=== PATIENT | female | born 1995 | race Caucasian/White ===

== ENCOUNTER 2019-08-04 15:37 | Observation (INO) ==
[2019-08-04 16:43] LABS: Bilirubin,Urine Negative (Negative); Blood,Urine Trace (Negative); Clarity,Urine Clear (Clear); Color,Urine Yellow (Yellow); Glucose,Urine (UA) Normal (Normal); Ketones,Urine Negative (Negative); Leukocyte Esterase,Urine Negative (Negative); Nitrite,Urine Negative (Negative); Protein,Urine Negative (Neg-Trace); Specific Gravity,Urine 1.005 (1.010-1.025); Urobilinogen,Urine Normal (Normal)
[2019-08-04 16:45] LABS: Bacteria,Urine Few per hpf (None-Few); Hyaline Casts,Urine None Seen per lpf (None-Few); RBC,Urine 0-3 per hpf (0-3); Squamous Epithelial Cell,Urine Many per lpf (None-Few)
[2019-08-04 17:51] LABS: Amphetamine Screen,Urine Negative ng/mL (Cutoff=1000); Barbiturate Screen,Urine Negative ng/mL (Cutoff=200); Benzodiazepines Screen,Urine Negative ng/mL (Cutoff=200); Cannabinoid Screen,Urine Negative ng/mL (Cutoff = 50); Cocaine Screen,Urine Negative ng/mL (Cutoff= 300); Opiate Screen,Urine Negative ng/mL (Cutoff=300); Phencyclidine Screen,Urine Negative ng/mL (Cutoff=25)
[2019-08-04 17:58] LABS: Candida DNA Not Detected (Not Detect); Gardnerella DNA Not Detected (Not Detect); Trichomonas DNA Not Detected (Not Detect)
== END 2019-08-04 18:11 | disposition home or self-care (01) ==
LOC: 1NENULAB
PROVIDERS: ADMIT Advanced Practice Midwife; ATTEND Advanced Practice Midwife

== ENCOUNTER → 2019-08-26 14:42 | Observation (INO) ==
[2019-08-26 13:59] LABS: Amphetamine Screen,Urine Negative ng/mL (Cutoff=1000); Barbiturate Screen,Urine Negative ng/mL (Cutoff=200); Benzodiazepines Screen,Urine Negative ng/mL (Cutoff=200); Cannabinoid Screen,Urine Negative ng/mL (Cutoff = 50); Cocaine Screen,Urine Negative ng/mL (Cutoff= 300); Opiate Screen,Urine Negative ng/mL (Cutoff=300); Phencyclidine Screen,Urine Negative ng/mL (Cutoff=25)
[2019-08-26 15:35] LABS: Candida DNA Not Detected (Not Detect); Gardnerella DNA Not Detected (Not Detect); Trichomonas DNA Not Detected (Not Detect)
== END | disposition home or self-care (01) ==
LOC: 1NENULAB
PROVIDERS: ADMIT Registered Nurse; ATTEND Registered Nurse

== ENCOUNTER 2019-09-12 06:37 | Inpatient (IN) ==
[~2019-09-12 06:37] MED LIST: Famotidine 20 MG/2 ML VIAL IVP PRN; Metoclopramide 10 MG/2 ML VIAL IVP PRN; Naloxone 0.4 MG/ML INJ IVP PRN; Ondansetron 4 MG/2 ML VIAL IVP PRN
[2019-09-12] MEDS ORDERED: Ringers Solution, Lactated 1,000 ML IVC SCH (06:45)
[2019-09-12 07:15] LABS: Basophils % 0.3 %; Eosinophils # 0.1 K/mcL (0.0-0.6); Eosinophils % 0.8 %; Hematocrit 38.4 % (35.3-44.9); Hemoglobin 13.6 g/dL (11.5-15.4); Immature Granulocytes % 1.2 % (0-4); Lymphocytes # 2.9 K/mcL (0.6-4.6); Lymphocytes % 19.8 %; Mean Corpuscular HGB Conc 35.4 g/dL (31.6-35.5); Mean Corpuscular Hemoglobin 31.4 pg (28.0-33.3); Mean Corpuscular Volume 88.7 fL (83.0-100.0); Mean Platelet Volume 9.8 fL (9.4-12.4); Monocytes # 1.1 K/mcL (0.0-1.3); Monocytes % 7.7 %; Neutrophils # 10.2 K/mcL (1.6-8.9); Platelet Count 290 K/mcL (140-400); Red Blood Count 4.33 M/mcL (3.82-4.97); Red Cell Distribution Width 13.3 % (11.5-14.5); Segmented Neutrophils % 70.2 %; White Blood Count 14.5 K/mcL (4.3-11.1)
[2019-09-12] MEDS ORDERED: miSOPROStoL 25 MCG TABLET PO PRN (08:11)
[2019-09-12] MEDS ORDERED: Oxytocin 20 units/ LR 1000 mL 20 UNIT/1,000 ML BAG IVC SCH (08:15)
[2019-09-12 08:50] LABS: Amphetamine Screen,Urine Negative ng/mL (Cutoff=1000); Barbiturate Screen,Urine Negative ng/mL (Cutoff=200); Benzodiazepines Screen,Urine Negative ng/mL (Cutoff=200); Cannabinoid Screen,Urine Negative ng/mL (Cutoff = 50); Cocaine Screen,Urine Negative ng/mL (Cutoff= 300); Opiate Screen,Urine Negative ng/mL (Cutoff=300); Phencyclidine Screen,Urine Negative ng/mL (Cutoff=25)
[2019-09-12] MEDS ORDERED: Epidural Premix (fent/bupiv) 110 ML EP SCH (09:30)
[2019-09-12] MEDS: *HR* Nalbuphine 10 MG/ML AMPUL IVP PRN ×2 (13:30→17:27)
[2019-09-12] MEDS ORDERED: *HR* Ropivacaine/PF 0.5% 20 ML VIAL ONE (18:57)
[2019-09-13] MEDS ORDERED: *HR* HYDROcodone/Acet 5/325 mg TABLET PO PRN (01:56)
[2019-09-13] MEDS ORDERED: Benzocaine/Menthol 56 GM AEROSOL SPRAY TP PRN (01:56)
[2019-09-13] MEDS ORDERED: Oxytocin 20 units/ LR 1000 mL 20 UNIT/1,000 ML BAG IVC SCH (01:56)
[2019-09-13] MEDS ORDERED: Lanolin 7 G OINT...G. TP PRN (01:56)
[2019-09-13] MEDS ORDERED: Acetaminophen 325 MG TABLET PO PRN (01:56)
[2019-09-13] MEDS: Prenatal Vit/FA 1 EACH TABLET PO SCH (08:22)
[2019-09-13] MEDS: Ibuprofen 600 MG TABLET PO PRN (16:50)
[2019-09-14] MEDS: Ibuprofen 600 MG TABLET PO PRN (04:11)
[2019-09-14] MEDS: Prenatal Vit/FA 1 EACH TABLET PO SCH (07:37)
[2019-09-14 07:52] VITALS: BP 114/65
== END 2019-09-14 12:27 | disposition home or self-care (01) | DRG 807 ==
LOC: 1NENULAB → 1NENUOBS 09-13 02:33
PROVIDERS: ADMIT Registered Nurse; ATTEND Registered Nurse

== ENCOUNTER → 2021-03-01 17:00 | Observation (INO) ==
[2021-03-01 18:27] LABS: Candida DNA Not Detected (Not Detect); Gardnerella DNA Not Detected (Not Detect); Trichomonas DNA Not Detected (Not Detect)
== END | disposition home or self-care (01) ==
LOC: 1NENULAB
PROVIDERS: ADMIT Student in an Organized Health Care Education/Training Program; ATTEND Student in an Organized Health Care Education/Training Program

== ENCOUNTER → 2021-03-08 22:02 | Observation (INO) | END | disposition home or self-care (01) | LOC: 1NENULAB | PROVIDERS: ADMIT Advanced Practice Midwife; ATTEND Advanced Practice Midwife ==

== ENCOUNTER → 2021-04-12 14:35 | Observation (INO) ==
[2021-04-12 13:49] LABS: Bilirubin,Urine Negative (Negative); Blood,Urine Negative (Negative); Clarity,Urine Clear (Clear); Color,Urine Light-Yellow (Yellow); Glucose,Urine (UA) Normal (Normal); Ketones,Urine Negative (Negative); Leukocyte Esterase,Urine Negative (Negative); Nitrite,Urine Negative (Negative); Protein,Urine Negative (Neg-Trace); Specific Gravity,Urine 1.012 (1.010-1.025); Urobilinogen,Urine Normal (Normal)
== END | disposition home or self-care (01) ==
LOC: 1NENULAB
PROVIDERS: ADMIT Obstetrics & Gynecology; ATTEND Obstetrics & Gynecology

== ENCOUNTER 2021-04-30 07:49 | Inpatient (IN) ==
[2021-04-30] MEDS ORDERED: miSOPROStoL 25 MCG TABLET PO PRN (08:19)
[2021-04-30] MEDS ORDERED: *HR* Nalbuphine 10 MG/ML AMPUL IV PRN (08:19)
[2021-04-30] MEDS ORDERED: Metoclopramide 10 MG/2 ML VIAL IVP PRN (08:19)
[2021-04-30] MEDS ORDERED: Famotidine 20 MG/2 ML VIAL IVP PRN (08:19)
[2021-04-30] MEDS ORDERED: Azithromycin 500 MG in 0.9 % Sodium Chloride 250 ML IVPB PRN (08:19)
[2021-04-30] MEDS ORDERED: Lidocaine 1% 20 ML MDV INFILT PRN (08:19)
[2021-04-30] MEDS ORDERED: Naloxone 0.4 MG/ML INJ IVP PRN (08:19)
[2021-04-30] MEDS ORDERED: Ondansetron 4 MG/2 ML VIAL IVP PRN (08:19)
[2021-04-30] MEDS ORDERED: Oxytocin 20 units/ LR 1000 mL 20 UNIT/1,000 ML BAG IVC SCH ×2 (08:30→19:58)
[2021-04-30] MEDS ORDERED: Ringers Solution, Lactated 1,000 ML IVC SCH (08:30)
[2021-04-30 09:22] LABS: Basophils # 0.1 K/mcL (0.0-0.2); Basophils % 0.3 %; Eosinophils # 0.1 K/mcL (0.0-0.6); Eosinophils % 0.7 %; Hematocrit 37.6 % (35.3-44.9); Hemoglobin 12.6 g/dL (11.5-15.4); Immature Granulocytes % 1.2 % (0-4); Lymphocytes # 2.4 K/mcL (0.6-4.6); Lymphocytes % 15.8 %; Mean Corpuscular HGB Conc 33.5 g/dL (31.6-35.5); Mean Corpuscular Volume 92.4 fL (83.0-100.0); Mean Platelet Volume 9.7 fL (9.4-12.4); Monocytes # 1.1 K/mcL (0.0-1.3); Monocytes % 7.7 %; Platelet Count 238 K/mcL (140-400); Red Blood Count 4.07 M/mcL (3.82-4.97); Red Cell Distribution Width 13.3 % (11.5-14.5); Segmented Neutrophils % 74.3 %; White Blood Count 14.9 K/mcL (4.3-11.1)
[2021-04-30 09:31] LABS: Amphetamine Screen,Urine Negative ng/mL (Cutoff=1000); Barbiturate Screen,Urine Negative ng/mL (Cutoff=200); Benzodiazepines Screen,Urine Negative ng/mL (Cutoff=200); Cannabinoid Screen,Urine Negative ng/mL (Cutoff = 50); Cocaine Screen,Urine Negative ng/mL (Cutoff= 300); Opiate Screen,Urine Negative ng/mL (Cutoff=300); Phencyclidine Screen,Urine Negative ng/mL (Cutoff=25)
[2021-04-30] MEDS ORDERED: EPHEDrine 50 MG/ML VIAL IVP PRN (14:16)
[2021-04-30] MEDS ORDERED: Epidural Premix (fent/bupiv) 110 ML EP SCH (14:30)
[2021-04-30] MEDS ORDERED: Methylergonovine 0.2 MG/ML AMPUL IM ONE (18:56)
[2021-04-30] MEDS ORDERED: Acetaminophen 325 MG TABLET PO PRN (19:58)
[2021-04-30] MEDS ORDERED: Lanolin 7 G OINT...G. TP PRN (19:58)
[2021-04-30] MEDS ORDERED: Ibuprofen 600 MG TABLET PO PRN (19:58)
[2021-04-30] MEDS ORDERED: Benzocaine/Menthol 56 GM AEROSOL SPRAY TP PRN (19:58)
[2021-05-01 06:00] LABS: Basophils % 0.2 %; Eosinophils # 0.1 K/mcL (0.0-0.6); Eosinophils % 0.6 %; Hematocrit 32.1 % (35.3-44.9); Hemoglobin 11.2 g/dL (11.5-15.4); Immature Granulocytes % 0.9 % (0-4); Lymphocytes # 3.1 K/mcL (0.6-4.6); Lymphocytes % 17.5 %; Mean Corpuscular HGB Conc 34.9 g/dL (31.6-35.5); Mean Corpuscular Hemoglobin 31.9 pg (28.0-33.3); Mean Corpuscular Volume 91.5 fL (83.0-100.0); Mean Platelet Volume 9.7 fL (9.4-12.4); Monocytes # 1.6 K/mcL (0.0-1.3); Monocytes % 8.9 %; Neutrophils # 12.6 K/mcL (1.6-8.9); Platelet Count 240 K/mcL (140-400); Red Blood Count 3.51 M/mcL (3.82-4.97); Red Cell Distribution Width 13.2 % (11.5-14.5); Segmented Neutrophils % 71.9 %; White Blood Count 17.5 K/mcL (4.3-11.1)
[2021-05-01 07:45] VITALS: TEMP 97.9
[2021-05-01] MEDS ORDERED: Prenatal Vit/FA 1 EACH TABLET PO SCH (09:00)
[2021-05-01 17:09] VITALS: BP 118/71; PULSE 78; O2SAT 98
== END 2021-05-01 18:57 | disposition home or self-care (01) | DRG 807 ==
LOC: 1NENULAB 07:49 → 1NENUOBS 19:49
PROVIDERS: ADMIT Registered Nurse; ATTEND Registered Nurse